=== PATIENT | female | born 1970 | race Caucasian/White ===

== ENCOUNTER 2020-07-25 18:37 | Inpatient (IN) | payer OTHER ==
[2020-07-25 18:55] VITALS: BMI 16.4
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
[2020-07-25] MEDS ORDERED: METHOCARBAMOL 500 MG TABLET PO PRN (19:45)
[2020-07-25] MEDS ORDERED: MENTHOL/PHENOL 1 EACH UD MM PRN (19:45)
[2020-07-25] MEDS ORDERED: ACETAMINOPHEN 325 MG TABLET (FP) PO PRN ×2 (19:45)
[2020-07-25] MEDS ORDERED: ONDANSETRON *ODT* 4 MG TABLET SL PRN (19:45)
[2020-07-25] MEDS ORDERED: BISMUTH SUBSALICYLATE 524 MG/30 ML UD PO PRN (19:45)
[2020-07-25] MEDS ORDERED: DICYCLOMINE HCL 10 MG CAPSULE PO PRN (19:45)
[2020-07-25] MEDS ORDERED: chlordiazePOXIDE HCL 25 MG CAPSULE PO PRN (19:45)
[2020-07-25] MEDS ORDERED: P-EPHED 60MG/TRIPROLIDI 2.5MG TABLET PO PRN (19:45)
[2020-07-25] MEDS ORDERED: guaiFENesin 200 MG/10 ML 10 ML UNIT-DOSE CUPS PO PRN (19:45)
[2020-07-25] MEDS ORDERED: MAG HYDROX/AL HYDROX/SIMETH 30 ML UNIT-DOSE CUP PO PRN (19:45)
[2020-07-25] MEDS ORDERED: MAGNESIUM CITRATE 300 ML BOTTLE PO PRN (19:45)
[2020-07-25] MEDS ORDERED: IBUPROFEN 400 MG TABLET (FP) PO PRN (19:45)
[2020-07-25] MEDS ORDERED: MAGNESIUM HYDROX 2400MG/30ML ORAL SUSPENSION 30 ML CUP PO PRN (19:45)
[2020-07-25] MEDS: chlordiazePOXIDE HCL 25 MG CAPSULE PO SCH (23:33)
[2020-07-25] MEDS: MELATONIN 5 MG TABLETS PO SCH (23:34)
[2020-07-25] MEDS: THIAMINE HCL 100 MG TABLET (FP) PO SCH (23:34)
[2020-07-26] MEDS: chlordiazePOXIDE HCL 25 MG CAPSULE PO SCH ×4 (08:15→22:45)
[2020-07-26] MEDS: NICOTINE 21 MG/24 HOURS TOPICAL PATCH TD SCH (10:20)
[2020-07-26 11:00] LABS: HEMOGLOBIN 13.2 GM/dL (10.7-15.3); MCH 30.7 pg (25.7-33.7); MCHC 33.9 g/dl (32.0-36.0); MEAN CELL VOLUME 90.5 fl (80-96); MEAN PLT VOLUME 8.3 fl (7.5-11.1); PLATELET COUNT 311 K/MM3 (134-434); RBC 4.31 M/mm3 (3.60-5.2); RDW 14.4 % (11.6-15.6); WHITE BLOOD COUNT 8.7 K/mm3 (4.0-10.0)
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
[2020-07-26 11:11] LABS: ALBUMIN 3.5 g/dl (3.4-5.0); BILIRUBIN,TOTAL 0.9 mg/dL (0.2-1); BLOOD UREA NITROGEN 12.9 mg/dL (7-18); CALCIUM 8.8 mg/dL (8.5-10.1); POTASSIUM 3.8 mmol/L (3.5-5.1); TOT PROT 6.7 g/dl (6.4-8.2)
[2020-07-26] MEDS ORDERED: chlordiazePOXIDE HCL 25 MG CAPSULE PO SCH (12:15)
[2020-07-26] MEDS ORDERED: chlordiazePOXIDE HCL 10 MG CAPSULE PO PRN (12:16)
[2020-07-26] MEDS: PRENATAL VITAMINS W/ FOLIC ACID TABLET (FP) PO SCH (13:24)
--- NOTE | 2020-07-26 14:01 | PN ---
S CIWA - CIWA Score Nausea/Vomitin-No Nausea/No Vomiting Muscle Tremors: 3 Anxiety: 1-Mildly Anxious Agitation: 1-Slight > Activity Paroxysmal Sweats: 2 Orientation: 0-Oriented Tacttile Disturbances: 0-None Auditory Disturbances: 0-None Visual Disturbances: 0-None Headache: 0-None Present CIWA-Ar Total Score: 7 BHS Progress Note (SOAP) Subjective: tired sleepy groggy little sweats Objective: 07/26/20 14:00 Vital Signs Temperature 97.1 F L 07/26/20 08:43 Pulse Rate 66 07/26/20 08:43 Respiratory Rate 18 07/26/20 08:43 Blood Pressure 98/67 07/26/20 08:43 O2 Sat by Pulse Oximetry (%) 99 07/26/20 08:43 Laboratory Tests 07/25/20 07/26/20 07/26/20 19:14 08:10 08:10 WBC 8.7 RBC 4.31 Hgb 13.2 Hct 39.0 MCV 90.5 MCH 30.7 MCHC 33.9 RDW 14.4 Plt Count 311 MPV 8.3 Sodium Potassium Chloride Carbon Dioxide Anion Gap BUN Creatinine Est GFR (CKD-EPI)AfAm Est GFR (CKD-EPI)NonAf Random Glucose Calcium Total Bilirubin AST ALT Alkaline Phosphatase Total Protein Albumin POC Urine HCG, Qual Negative Syphilis Serology Non-reactive 07/26/20 08:10 WBC RBC Hgb Hct MCV MCH MCHC RDW Plt Count MPV Sodium 139 Potassium 3.8 Chloride 105 Carbon Dioxide 26 Anion Gap 8 BUN 12.9 Creatinine 1.0 Est GFR (CKD-EPI)AfAm 76.61 Est GFR (CKD-EPI)NonAf 66.10 Random Glucose 174 H Calcium 8.8 Total Bilirubin 0.9 AST 11 L ALT 15 Alkaline Phosphatase 51 Total Protein 6.7 Albumin 3.5 POC Urine HCG, Qual Syphilis Serology labs noted lying in bed no acute distress Assessment: 07/26/20 14:00 groggy tired mild withdrawals Plan: libirum modified lesser dose detox regimen ordered encouraged fluids
--- NOTE | 2020-07-26 15:30 | EKG ---
Test Reason : Blood Pressure : / mmHG Vent. Rate : 057 BPM Atrial Rate : 057 BPM P-R Int : 138 ms QRS Dur : 086 ms QT Int : 450 ms P-R-T Axes : 064 038 052 degrees QTc Int : 438 ms SINUS BRADYCARDIA OTHERWISE NORMAL ECG NO PREVIOUS ECGS AVAILABLE Confirmed by DERIC GARCIA MD ([id number]) on 07/26/2020 3:29:45 PM Referred By: Confirmed By:DERIC GARCIA MD
[2020-07-26] MEDS: THIAMINE HCL 100 MG TABLET (FP) PO SCH (22:45)
[2020-07-26] MEDS: MELATONIN 5 MG TABLETS PO SCH (22:45)
[2020-07-27] MEDS ORDERED: chlordiazePOXIDE HCL 25 MG CAPSULE PO SCH (05:00)
[2020-07-27] MEDS: chlordiazePOXIDE HCL 25 MG CAPSULE PO SCH ×3 (07:44→21:39)
[2020-07-27] MEDS: NICOTINE 21 MG/24 HOURS TOPICAL PATCH TD SCH (11:18)
[2020-07-27] MEDS: PRENATAL VITAMINS W/ FOLIC ACID TABLET (FP) PO SCH (11:18)
--- NOTE | 2020-07-27 11:42 | PN ---
S CIWA - CIWA Score Nausea/Vomitin-No Nausea/No Vomiting Muscle Tremors: 2 Anxiety: 1-Mildly Anxious Agitation: 2 Paroxysmal Sweats: 2 Orientation: 0-Oriented Tacttile Disturbances: 0-None Auditory Disturbances: 0-None Visual Disturbances: 0-None Headache: 0-None Present CIWA-Ar Total Score: 7 BHS Progress Note (SOAP) Subjective: sweats tired interrupted sleep Objective: 07/27/20 11:52 Vital Signs Temperature 98.9 F 07/27/20 08:42 Pulse Rate 67 07/27/20 08:42 Respiratory Rate 16 07/27/20 08:42 Blood Pressure 101/64 07/27/20 08:42 O2 Sat by Pulse Oximetry (%) 99 07/27/20 08:42 Laboratory Tests 07/25/20 07/25/20 07/26/20 19:14 21:00 08:10 WBC RBC Hgb Hct MCV MCH MCHC RDW Plt Count MPV Sodium Potassium Chloride Carbon Dioxide Anion Gap BUN Creatinine Est GFR (CKD-EPI)AfAm Est GFR (CKD-EPI)NonAf Random Glucose Calcium Total Bilirubin AST ALT Alkaline Phosphatase Total Protein Albumin POC Urine HCG, Qual Negative Syphilis Serology Non-reactive COVID-19 ([facility]) Not detected 07/26/20 07/26/20 08:10 08:10 WBC 8.7 RBC 4.31 Hgb 13.2 Hct 39.0 MCV 90.5 MCH 30.7 MCHC 33.9 RDW 14.4 Plt Count 311 MPV 8.3 Sodium 139 Potassium 3.8 Chloride 105 Carbon Dioxide 26 Anion Gap 8 BUN 12.9 Creatinine 1.0 Est GFR (CKD-EPI)AfAm 76.61 Est GFR (CKD-EPI)NonAf 66.10 Random Glucose 174 H Calcium 8.8 Total Bilirubin 0.9 AST 11 L ALT 15 Alkaline Phosphatase 51 Total Protein 6.7 Albumin 3.5 POC Urine HCG, Qual Syphilis Serology COVID-19 ([facility]NE) random glucose repeated pt denies having diabetes aaox3 lying in bed no acute distress Assessment: 07/27/20 12:01 withdrawals Plan: continue detox random glucose lab ordered
[2020-07-27] MEDS: NICOTINE POLACRILEX 2 MG GUM BUC PRN ×2 (13:29→17:18)
[2020-07-27] MEDS: hydrOXYzine PAMOATE 25 MG CAPSULE (FP) PO PRN (19:45)
[2020-07-27] MEDS: THIAMINE HCL 100 MG TABLET (FP) PO SCH (21:39)
[2020-07-27] MEDS: MELATONIN 5 MG TABLETS PO SCH (21:39)
[2020-07-28] MEDS ORDERED: chlordiazePOXIDE HCL 10 MG CAPSULE PO PRN
[2020-07-28] MEDS ORDERED: chlordiazePOXIDE HCL 10 MG CAPSULE PO SCH (05:00)
[2020-07-28] MEDS: chlordiazePOXIDE 5 MG CAPSULE PO SCH ×3 (07:07→23:55)
[2020-07-28] MEDS: PRENATAL VITAMINS W/ FOLIC ACID TABLET (FP) PO SCH (11:18)
[2020-07-28] MEDS: NICOTINE 21 MG/24 HOURS TOPICAL PATCH TD SCH (11:18)
[2020-07-28] MEDS: NICOTINE POLACRILEX 2 MG GUM BUC PRN (12:29)
--- NOTE | 2020-07-28 13:02 | PN ---
S CIWA - CIWA Score Nausea/Vomitin-No Nausea/No Vomiting Muscle Tremors: 2 Anxiety: 2 Agitation: 2 Paroxysmal Sweats: 2 Orientation: 0-Oriented Tacttile Disturbances: 0-None Auditory Disturbances: 0-None Visual Disturbances: 0-None Headache: 0-None Present CIWA-Ar Total Score: 8 BHS Progress Note (SOAP) Subjective: Complaint of anxiety, sweats, irritability and tremors. Objective: 07/28/20 13:01 Vital Signs 07/28/20 07/28/20 05:13 09:12 Temperature 97.7 F 96.9 F L Pulse Rate 55 L 69 Respiratory 16 18 Rate Blood Pressure 87/50 L 89/55 L O2 Sat by Pulse 99 98 Oximetry (%) Laboratory Last Values WBC 8.7 K/mm3 (4.0-10.0) 07/26/20 08:10 RBC 4.31 M/mm3 (3.60-5.2) 07/26/20 08:10 Hgb 13.2 GM/dL (10.7-15.3) 07/26/20 08:10 Hct 39.0 % (32.4-45.2) 07/26/20 08:10 MCV 90.5 fl (80-96) 07/26/20 08:10 MCH 30.7 pg (25.7-33.7) 07/26/20 08:10 MCHC 33.9 g/dl (32.0-36.0) 07/26/20 08:10 RDW 14.4 % (11.6-15.6) 07/26/20 08:10 Plt Count 311 K/MM3 (134-434) 07/26/20 08:10 MPV 8.3 fl (7.5-11.1) 07/26/20 08:10 Sodium 139 mmol/L (136-145) 07/26/20 08:10 Potassium 3.8 mmol/L (3.5-5.1) 07/26/20 08:10 Chloride 105 mmol/L (98-107) 07/26/20 08:10 Carbon Dioxide 26 mmol/L (21-32) 07/26/20 08:10 Anion Gap 8 MMOL/L (8-16) 07/26/20 08:10 BUN 12.9 mg/dL (7-18) 07/26/20 08:10 Creatinine 1.0 mg/dL (0.55-1.3) 07/26/20 08:10 Est GFR (CKD-EPI)AfAm 76.61 07/26/20 08:10 Est GFR (CKD-EPI)NonAf 66.10 07/26/20 08:10 Random Glucose 88 mg/dL (74-106) 07/28/20 07:25 Calcium 8.8 mg/dL (8.5-10.1) 07/26/20 08:10 Total Bilirubin 0.9 mg/dL (0.2-1) 07/26/20 08:10 AST 11 U/L (15-37) L 07/26/20 08:10 ALT 15 U/L (13-61) 07/26/20 08:10 Alkaline Phosphatase 51 U/L (45-117) 07/26/20 08:10 Total Protein 6.7 g/dl (6.4-8.2) 07/26/20 08:10 Albumin 3.5 g/dl (3.4-5.0) 07/26/20 08:10 POC Urine HCG, Qual Negative 07/25/20 19:14 Syphilis Serology Non-reactive (NONREACTIVE) 07/26/20 08:10 COVID-19 ([facility]) Not detected (Not Detected) 07/25/20 21:00 Labs noted. Assessment: 07/28/20 13:02 Alert and oriented x 3, in no acute respiratory distress. Full ROM, ambulating in unit without assistance. Skin warm to touch without any lesions. Withdrawal symptoms. Plan: Continue detox protocol.
[2020-07-28] MEDS: THIAMINE HCL 100 MG TABLET (FP) PO SCH (23:55)
[2020-07-28] MEDS: MELATONIN 5 MG TABLETS PO SCH (23:55)
[2020-07-29] MEDS ORDERED: chlordiazePOXIDE HCL 10 MG CAPSULE PO PRN
[2020-07-29] MEDS ORDERED: chlordiazePOXIDE HCL 10 MG CAPSULE PO SCH (05:00)
[2020-07-29] MEDS: chlordiazePOXIDE HCL 10 MG CAPSULE PO SCH ×3 (06:43→23:29)
[2020-07-29] MEDS: NICOTINE 21 MG/24 HOURS TOPICAL PATCH TD SCH (10:42)
[2020-07-29] MEDS: PRENATAL VITAMINS W/ FOLIC ACID TABLET (FP) PO SCH (10:42)
--- NOTE | 2020-07-29 12:13 | PN ---
[facility] CIWA - CIWA Score Nausea/Vomitin-No Nausea/No Vomiting Muscle Tremors: 1-None Visible, but [place] Anxiety: 2 Agitation: 0-Normal Activity Paroxysmal Sweats: 1-Minimal Palms Moist Orientation: 0-Oriented Tacttile Disturbances: 0-None Auditory Disturbances: 0-None Visual Disturbances: 0-None Headache: 0-None Present CIWA-Ar Total Score: 4 BHS Progress Note (SOAP) Subjective: C/o mild anxiety, sweats, and tremors. Objective: 07/29/20 12:12 Vital Signs 07/29/20 07/29/20 07/29/20 05:45 07:30 08:55 Temperature 96.7 F L 97.8 F Pulse Rate 57 L 60 60 Respiratory 16 18 Rate Blood Pressure 82/50 L 83/53 L 95/53 L O2 Sat by Pulse 99 100 Oximetry (%) Laboratory Last Values WBC 8.7 K/mm3 (4.0-10.0) 07/26/20 08:10 RBC 4.31 M/mm3 (3.60-5.2) 07/26/20 08:10 Hgb 13.2 GM/dL (10.7-15.3) 07/26/20 08:10 Hct 39.0 % (32.4-45.2) 07/26/20 08:10 MCV 90.5 fl (80-96) 07/26/20 08:10 MCH 30.7 pg (25.7-33.7) 07/26/20 08:10 MCHC 33.9 g/dl (32.0-36.0) 07/26/20 08:10 RDW 14.4 % (11.6-15.6) 07/26/20 08:10 Plt Count 311 K/MM3 (134-434) 07/26/20 08:10 MPV 8.3 fl (7.5-11.1) 07/26/20 08:10 Sodium 139 mmol/L (136-145) 07/26/20 08:10 Potassium 3.8 mmol/L (3.5-5.1) 07/26/20 08:10 Chloride 105 mmol/L (98-107) 07/26/20 08:10 Carbon Dioxide 26 mmol/L (21-32) 07/26/20 08:10 Anion Gap 8 MMOL/L (8-16) 07/26/20 08:10 BUN 12.9 mg/dL (7-18) 07/26/20 08:10 Creatinine 1.0 mg/dL (0.55-1.3) 07/26/20 08:10 Est GFR (CKD-EPI)AfAm 76.61 07/26/20 08:10 Est GFR (CKD-EPI)NonAf 66.10 07/26/20 08:10 Random Glucose 88 mg/dL (74-106) 07/28/20 07:25 Calcium 8.8 mg/dL (8.5-10.1) 07/26/20 08:10 Total Bilirubin 0.9 mg/dL (0.2-1) 07/26/20 08:10 AST 11 U/L (15-37) L 07/26/20 08:10 ALT 15 U/L (13-61) 07/26/20 08:10 Alkaline Phosphatase 51 U/L (45-117) 07/26/20 08:10 Total Protein 6.7 g/dl (6.4-8.2) 07/26/20 08:10 Albumin 3.5 g/dl (3.4-5.0) 07/26/20 08:10 POC Urine HCG, Qual Negative 07/25/20 19:14 Syphilis Serology Non-reactive (NONREACTIVE) 07/26/20 08:10 COVID-19 ([facility]) Not detected (Not Detected) 07/25/20 21:00 labs noted. Assessment: 07/29/20 12:12 Alert and oriented x 3, in no acute respiratory distress. Full ROM, ambulatory in unit without any assistance. Skin warm to touch without any lesions. Very mild withdrawal symptoms. Plan: Continue detox protocol. D/C in AM.
[2020-07-29] MEDS: NICOTINE POLACRILEX 2 MG GUM BUC PRN (12:18)
[2020-07-29] MEDS: hydrOXYzine PAMOATE 25 MG CAPSULE (FP) PO PRN (12:18)
[2020-07-29] MEDS: THIAMINE HCL 100 MG TABLET (FP) PO SCH (23:30)
[2020-07-29] MEDS: MELATONIN 5 MG TABLETS PO SCH (23:30)
[2020-07-30] MEDS ORDERED: chlordiazePOXIDE HCL 10 MG CAPSULE PO ONE ×2 (05:00)
[2020-07-30 09:21] VITALS: BP 102/57; PULSE 77; TEMP 98.1
--- NOTE | 2020-07-30 12:59 | DS ---
[facility] Detox Discharge Summary Admission Date: 07/25/20 Discharge Date: 07/30/20 - History Present History: Alcohol Dependence, Cannabis Dependence Additional Comments: Pt is medically cleared and discharged today. Pt completed the detox protocol. Pt is encouraged to follow-up with an outpatient CD program and also to follow- up with her pmd which she verbalized understanding. Pt is AOX3, in no acute respiratory distress, Full ROM, and ambulatory. Pertinent Past History: h/o alcohol and cannabis use disorder. - Physical Exam Results Vital Signs: Vital Signs Temperature 98.1 F 07/30/20 08:32 Pulse Rate 77 07/30/20 08:32 Respiratory Rate 16 07/30/20 08:32 Blood Pressure 102/57 L 07/30/20 08:32 O2 Sat by Pulse Oximetry (%) 97 07/29/20 21:08 Vital Signs 07/30/20 08:32 Temperature 98.1 F Pulse Rate 77 Respiratory 16 Rate Blood Pressure 102/57 L Laboratory Last Values WBC 8.7 K/mm3 (4.0-10.0) 07/26/20 08:10 RBC 4.31 M/mm3 (3.60-5.2) 07/26/20 08:10 Hgb 13.2 GM/dL (10.7-15.3) 07/26/20 08:10 Hct 39.0 % (32.4-45.2) 07/26/20 08:10 MCV 90.5 fl (80-96) 07/26/20 08:10 MCH 30.7 pg (25.7-33.7) 07/26/20 08:10 MCHC 33.9 g/dl (32.0-36.0) 07/26/20 08:10 RDW 14.4 % (11.6-15.6) 07/26/20 08:10 Plt Count 311 K/MM3 (134-434) 07/26/20 08:10 MPV 8.3 fl (7.5-11.1) 07/26/20 08:10 Sodium 139 mmol/L (136-145) 07/26/20 08:10 Potassium 3.8 mmol/L (3.5-5.1) 07/26/20 08:10 Chloride 105 mmol/L (98-107) 07/26/20 08:10 Carbon Dioxide 26 mmol/L (21-32) 07/26/20 08:10 Anion Gap 8 MMOL/L (8-16) 07/26/20 08:10 BUN 12.9 mg/dL (7-18) 07/26/20 08:10 Creatinine 1.0 mg/dL (0.55-1.3) 07/26/20 08:10 Est GFR (CKD-EPI)AfAm 76.61 07/26/20 08:10 Est GFR (CKD-EPI)NonAf 66.10 07/26/20 08:10 Random Glucose 88 mg/dL (74-106) 07/28/20 07:25 Calcium 8.8 mg/dL (8.5-10.1) 07/26/20 08:10 Total Bilirubin 0.9 mg/dL (0.2-1) 07/26/20 08:10 AST 11 U/L (15-37) L 07/26/20 08:10 ALT 15 U/L (13-61) 07/26/20 08:10 Alkaline Phosphatase 51 U/L (45-117) 07/26/20 08:10 Total Protein 6.7 g/dl (6.4-8.2) 07/26/20 08:10 Albumin 3.5 g/dl (3.4-5.0) 07/26/20 08:10 POC Urine HCG, Qual Negative 07/25/20 19:14 Syphilis Serology Non-reactive (NONREACTIVE) 07/26/20 08:10 COVID-19 ([facility]) Not detected (Not Detected) 07/25/20 21:00 Labs noted. Pertinent Admission Physical Exam Findings: withdrawal symptoms. - Treatment Hospital Course: Detox Protocol Followed, Detoxed Safely, Responded well, Discharged Condition Good - Diagnosis (1) Alcohol dependence with withdrawal, uncomplicated Status: Acute (2) Cannabis dependence, uncomplicated Status: Chronic (3) Nicotine dependence Status: Chronic - AMA Did Patient Leave Against Medical Advice: No
== END 2020-07-30 10:15 | disposition home or self-care (01) | DRG 775 ==
LOC: YASAS 18:37 → Y6N 19:35
PROVIDERS: ADMIT Allergy & Immunology; ATTEND Allergy & Immunology
PROC: HZ2ZZZZ Detoxification Services for Substance Abuse Treatment (ICD-10-PCS; principal; 2020-07-25)
DX: F10.230 Alcohol dependence with withdrawal, uncomplicated (principal); F12.20 Cannabis dependence, uncomplicated; F17.210 Nicotine dependence, cigarettes, uncomplicated; F19.282 Other psychoactive substance dependence with psychoactive substance-induced sleep disorder; F32.9 Major depressive disorder, single episode, unspecified; G35 Multiple sclerosis; Z62.810 Personal history of physical and sexual abuse in childhood; Z86.2 Personal history of diseases of the blood and blood-forming organs and certain disorders involving the immune mechanism; R63.6 Underweight; Z68.1 Body mass index [BMI] 19.9 or less, adult; Z56.0 Unemployment, unspecified; Z91.5 Personal history of self-harm; Z88.8 Allergy status to other drugs, medicaments and biological substances
CPT/HCPCS: 36415; 80053; 81025; 82947; 85027; 86780; 93005; 93010; Q0162; U0003

== ENCOUNTER 2020-11-05 10:51 | Inpatient (IN) | payer OTHER ==
[2020-11-05] MEDS ORDERED: BISMUTH SUBSALICYLATE 262 MG/15 ML BTL PO PRN (14:19)
[2020-11-05] MEDS ORDERED: MAGNESIUM CITRATE 300 ML BOTTLE PO PRN (14:19)
[2020-11-05] MEDS ORDERED: ONDANSETRON *ODT* 4 MG TABLET SL PRN (14:19)
[2020-11-05] MEDS ORDERED: IBUPROFEN 400 MG TABLET (FP) PO PRN (14:19)
[2020-11-05] MEDS ORDERED: MAG HYDROX/AL HYDROX/SIMETH 30 ML UNIT-DOSE CUP PO PRN (14:19)
[2020-11-05] MEDS ORDERED: chlordiazePOXIDE HCL 25 MG CAPSULE PO PRN (14:19)
[2020-11-05] MEDS ORDERED: MENTHOL/PHENOL 1 EACH UD MM PRN (14:19)
[2020-11-05] MEDS ORDERED: MAGNESIUM HYDROX 2400MG/30ML ORAL SUSPENSION 30 ML CUP PO PRN (14:19)
[2020-11-05] MEDS ORDERED: ACETAMINOPHEN 325 MG TABLET (FP) PO PRN (14:19)
[2020-11-05] MEDS ORDERED: NICOTINE POLACRILEX 2 MG GUM BUC PRN (14:19)
[2020-11-05 15:13] LABS: HEMATOCRIT 38.4 % (32.4-45.2); HEMOGLOBIN 12.5 GM/dL (10.7-15.3); MCH 31.1 pg (25.7-33.7); MCHC 32.5 g/dl (32.0-36.0); MEAN CELL VOLUME 95.6 fl (80-96); MEAN PLT VOLUME 8.1 fl (7.5-11.1); PLATELET COUNT 306 K/MM3 (134-434); POTASSIUM 4.6 mmol/L (3.5-5.1); RBC 4.01 M/mm3 (3.60-5.2); RDW 13.5 % (11.6-15.6)
[2020-11-05 15:16] LABS: ALBUMIN 3.3 g/dl (3.4-5.0); BLOOD UREA NITROGEN 10.7 mg/dL (7-18)
[2020-11-05 15:19] LABS: CREATININE 0.8 mg/dL (0.55-1.3)
[2020-11-05 15:20] LABS: BILIRUBIN,TOTAL 0.6 mg/dL (0.2-1); TOT PROT 6.4 g/dl (6.4-8.2)
[2020-11-05 15:38] VITALS: BMI 16.7
[2020-11-05] MEDS ORDERED: chlordiazePOXIDE HCL 25 MG CAPSULE ONE (15:56)
[2020-11-05] MEDS ORDERED: NICOTINE 21 MG/24 HOURS TOPICAL PATCH ONE (15:59)
[2020-11-05] MEDS: chlordiazePOXIDE HCL 25 MG CAPSULE PO SCH ×2 (16:00→23:08)
[2020-11-05] MEDS: NICOTINE 21 MG/24 HOURS TOPICAL PATCH TD SCH (16:01)
[2020-11-05] MEDS: hydrOXYzine PAMOATE 25 MG CAPSULE (FP) PO SCH ×2 (18:07→23:08)
[2020-11-05] MEDS: MELATONIN 5 MG TABLETS PO SCH (23:07)
[2020-11-05] MEDS: THIAMINE HCL 100 MG TABLET (FP) PO SCH (23:08)
[2020-11-06] MEDS: chlordiazePOXIDE HCL 25 MG CAPSULE PO SCH ×4 (06:05→22:27)
[2020-11-06] MEDS: hydrOXYzine PAMOATE 25 MG CAPSULE (FP) PO SCH ×5 (06:05→22:29)
[2020-11-06] MEDS ORDERED: MASKS NR ONE (08:47)
[2020-11-06] MEDS: NICOTINE 21 MG/24 HOURS TOPICAL PATCH TD SCH (10:36)
[2020-11-06] MEDS: METHOCARBAMOL 500 MG TABLET PO PRN (10:36)
[2020-11-06] MEDS: PRENATAL VITAMINS W/ FOLIC ACID TABLET (FP) PO SCH (10:36)
[2020-11-06] MEDS: THIAMINE HCL 100 MG TABLET (FP) PO SCH (22:29)
[2020-11-06] MEDS: MELATONIN 5 MG TABLETS PO SCH (22:29)
[2020-11-07] MEDS: hydrOXYzine PAMOATE 25 MG CAPSULE (FP) PO SCH (06:18)
[2020-11-07] MEDS: chlordiazePOXIDE HCL 25 MG CAPSULE PO SCH ×4 (06:18→22:26)
[2020-11-07] MEDS: PRENATAL VITAMINS W/ FOLIC ACID TABLET (FP) PO SCH (10:17)
[2020-11-07] MEDS: NICOTINE 21 MG/24 HOURS TOPICAL PATCH TD SCH (10:17)
[2020-11-07 10:59] LABS: BASO % 0.7 % (0-2.0); EOS % 2.8 % (0-4.5); HEMATOCRIT 43.2 % (32.4-45.2); HEMOGLOBIN 14.1 GM/dL (10.7-15.3); LYMPH % 20.5 % (8-40); MCH 31.3 pg (25.7-33.7); MCHC 32.6 g/dl (32.0-36.0); MEAN CELL VOLUME 96.1 fl (80-96); MEAN PLT VOLUME 8.4 fl (7.5-11.1); MONO % 6.7 % (3.8-10.2); NEUT % 69.3 % (42.8-82.8); PLATELET COUNT 300 K/MM3 (134-434); RDW 13.6 % (11.6-15.6); WHITE BLOOD COUNT 8.4 K/mm3 (4.0-10.0)
[2020-11-07 12:31] LABS: ANISOCYTOSIS 0; HELMET CELLS 0; HOWELL-JOLLY BODIES 0; MACROCYTOSIS 0; OVALOCYTE 0; PLATELET ESTIMATE NORMAL; ROULEAU 0; SICKELED CELLS 0; TARGET CELLS 0; TEAR DROP CELLS 0; TOXIC GRANULATION 0
[2020-11-07] MEDS: MELATONIN 5 MG TABLETS PO SCH (22:26)
[2020-11-07] MEDS: THIAMINE HCL 100 MG TABLET (FP) PO SCH (22:26)
[2020-11-08] MEDS ORDERED: chlordiazePOXIDE HCL 10 MG CAPSULE PO PRN
[2020-11-08] MEDS: chlordiazePOXIDE HCL 10 MG CAPSULE PO SCH ×4 (05:53→22:30)
[2020-11-08] MEDS: hydrOXYzine PAMOATE 25 MG CAPSULE (FP) PO PRN ×2 (08:58→17:58)
[2020-11-08] MEDS: PRENATAL VITAMINS W/ FOLIC ACID TABLET (FP) PO SCH (11:21)
[2020-11-08] MEDS: NICOTINE 21 MG/24 HOURS TOPICAL PATCH TD SCH (11:21)
[2020-11-08] MEDS: THIAMINE HCL 100 MG TABLET (FP) PO SCH (22:29)
[2020-11-08] MEDS: MELATONIN 5 MG TABLETS PO SCH (22:30)
[2020-11-09] MEDS: chlordiazePOXIDE HCL 10 MG CAPSULE PO SCH ×2 (07:09→17:35)
[2020-11-09] MEDS: ACETAMINOPHEN 325 MG TABLET (FP) PO PRN ×2 (08:49→17:36)
[2020-11-09] MEDS: NICOTINE 21 MG/24 HOURS TOPICAL PATCH TD SCH (09:31)
[2020-11-09] MEDS: PRENATAL VITAMINS W/ FOLIC ACID TABLET (FP) PO SCH (10:26)
[2020-11-09] MEDS: hydrOXYzine PAMOATE 25 MG CAPSULE (FP) PO PRN (10:27)
[2020-11-09] MEDS: METHOCARBAMOL 500 MG TABLET PO PRN (20:33)
[2020-11-09] MEDS: THIAMINE HCL 100 MG TABLET (FP) PO SCH (23:13)
[2020-11-09] MEDS: MELATONIN 5 MG TABLETS PO SCH (23:13)
[2020-11-10] MEDS ORDERED: chlordiazePOXIDE HCL 10 MG CAPSULE PO ONE (05:00)
[2020-11-10] MEDS: METHOCARBAMOL 500 MG TABLET PO PRN (08:56)
[2020-11-10 09:13] VITALS: BP 127/69; PULSE 103; TEMP 97.1
[2020-11-10] MEDS: hydrOXYzine PAMOATE 25 MG CAPSULE (FP) PO PRN (09:40)
[2020-11-10] MEDS: PRENATAL VITAMINS W/ FOLIC ACID TABLET (FP) PO SCH (09:41)
[2020-11-10] MEDS: NICOTINE 21 MG/24 HOURS TOPICAL PATCH TD SCH (09:41)
== END 2020-11-10 13:16 | disposition other institution (70) | DRG 773 ==
LOC: YASAS 10:51 → Y6N 15:40
PROVIDERS: ADMIT Allergy & Immunology; ATTEND Allergy & Immunology
PROC: HZ2ZZZZ Detoxification Services for Substance Abuse Treatment (ICD-10-PCS; principal; 2020-11-05)
DX: F10.230 Alcohol dependence with withdrawal, uncomplicated (principal); F11.10 Opioid abuse, uncomplicated; F12.10 Cannabis abuse, uncomplicated; F17.210 Nicotine dependence, cigarettes, uncomplicated; F84.0 Autistic disorder; F32.9 Major depressive disorder, single episode, unspecified; G35 Multiple sclerosis; D72.829 Elevated white blood cell count, unspecified; R73.09 Other abnormal glucose; Z62.810 Personal history of physical and sexual abuse in childhood; Z88.8 Allergy status to other drugs, medicaments and biological substances
CPT/HCPCS: 36415; 80053; 81025; 82947; 85025; 85027; 86780; C9803; U0003

== ENCOUNTER 2020-11-10 12:50 | Inpatient (IN) | payer OTHER ==
[2020-11-10] MEDS ORDERED: P-EPHED 60MG/TRIPROLIDI 2.5MG TABLET PO PRN (13:51)
[2020-11-10] MEDS ORDERED: ACETAMINOPHEN 325 MG TABLET (FP) PO PRN (13:51)
[2020-11-10] MEDS ORDERED: MAG HYDROX/AL HYDROX/SIMETH 30 ML UNIT-DOSE CUP PO PRN (13:51)
[2020-11-10] MEDS ORDERED: MAGNESIUM HYDROX 2400MG/30ML ORAL SUSPENSION 30 ML CUP PO PRN (13:51)
[2020-11-10] MEDS ORDERED: guaiFENesin 200 MG/10 ML 10 ML UNIT-DOSE CUPS PO PRN (13:51)
[2020-11-10] MEDS ORDERED: MENTHOL/PHENOL 1 EACH UD MM PRN (13:51)
[2020-11-10] MEDS ORDERED: NICOTINE POLACRILEX 2 MG GUM BUC PRN (13:51)
[2020-11-10] MEDS ORDERED: IBUPROFEN 400 MG TABLET (FP) PO PRN (13:51)
[2020-11-10] MEDS ORDERED: LOPERAMIDE HCL 2 MG CAPSULE PO PRN (13:51)
[2020-11-10] MEDS ORDERED: MAGNESIUM CITRATE 300 ML BOTTLE PO PRN (13:51)
[2020-11-10] MEDS: hydrOXYzine PAMOATE 25 MG CAPSULE (FP) PO PRN (14:59)
[2020-11-10] MEDS ORDERED: MELATONIN 5 MG TABLETS PO SCH (22:00)
[2020-11-10] MEDS ORDERED: THIAMINE HCL 100 MG TABLET (FP) PO SCH (22:00)
[2020-11-11 07:00] VITALS: TEMP 97.5
[2020-11-11] MEDS: hydrOXYzine PAMOATE 25 MG CAPSULE (FP) PO PRN (07:21)
[2020-11-11] MEDS ORDERED: METHOCARBAMOL 500 MG TABLET PO PRN (07:21)
[2020-11-11 07:34] VITALS: BP 140/80; PULSE 74
[2020-11-11] MEDS ORDERED: RALTEGRAVIR POTASSIUM 400 MG PO SCH (08:45)
[2020-11-11] MEDS ORDERED: PATIENT'S OWN MEDICATION (NON-FORMULARY) (Emtricitabine/Tenofovir (Tdf) [Truvada 200 Mg-30 PO SCH (10:00)
[2020-11-11] MEDS ORDERED: RALTEGRAVIR POTASSIUM 400 MG TAB PO SCH (10:00)
[2020-11-11] MEDS ORDERED: PRENATAL VITAMINS W/ FOLIC ACID TABLET (FP) PO SCH (10:00)
[2020-11-11] MEDS ORDERED: EMTRICITABINE 200MG/TENOFOVIR 300MG PO SCH (10:00)
[2020-11-11] MEDS ORDERED: NICOTINE 21 MG/24 HOURS TOPICAL PATCH TD SCH (10:00)
== END 2020-11-11 12:00 | disposition left against medical advice (07) | DRG 770 ==
LOC: YASAS 12:50 → Y3E 12:52
PROVIDERS: ADMIT Allergy & Immunology; ATTEND Allergy & Immunology
PROC: HZ42ZZZ Group Counseling for Substance Abuse Treatment, Cognitive-Behavioral (ICD-10-PCS; principal; 2020-11-10)
DX: F10.20 Alcohol dependence, uncomplicated (principal); F11.10 Opioid abuse, uncomplicated; F12.10 Cannabis abuse, uncomplicated; F17.210 Nicotine dependence, cigarettes, uncomplicated; F84.0 Autistic disorder; G35 Multiple sclerosis; R63.6 Underweight; Z62.810 Personal history of physical and sexual abuse in childhood; Z88.8 Allergy status to other drugs, medicaments and biological substances; Z91.410 Personal history of adult physical and sexual abuse